=== PATIENT | female | born 1940 | race Hispanic/Latino ===

== ENCOUNTER 2019-02-11 23:34 | Inpatient (IN) | payer MEDICARE, OTHER ==
[~2019-02-11] VITALS: Ht 149.9 cm; Wt 41.8 kg
[~2019-02-11 23:34] MED LIST: AMLO5TAB9 PO; ASPI-555 PO; DONE10TA43 PO; GLIP2.5T2 PO; LEVO500S PO; LEVO500T89 PO; LISI40TA4 PO; METF-444 PO; METR500T PO; MULT-1258 PO; NAPR220C15 PO; PRAV40TA3 PO
[2019-02-12 00:06] LABS: CARBON DIOXIDE 24 mmol/L (21-32); CHLORIDE 104 mmol/L (101-111); CREATININE 3.3 mg/dL (0.5-1.5); GLOMERULAR FILTR. RATE CALC 14 mL/min (>60); GLUCOSE,RANDOM 164 mg/dL (70-105); POTASSIUM 3.8 mmol/L (3.5-5.1); SODIUM SERUM 141 mmol/L (136-145); UREA NITROGEN, BLOOD 62 mg/dL (7-18)
[2019-02-12] MEDS ORDERED: SODIUM CHLORIDE 0.9% 1000ML 1,000 ML IV ONE ×3 (00:06→05:10)
[2019-02-12 00:12] LABS: INR 1.06 (0.85-1.15); PARTIAL THROMBOPLASTIN TIME 22.8 SEC (26.3-35.5); PROTHROMBIN TIME 11.1 SEC (9.6-11.6)
[2019-02-12 00:13] LABS: APPEARANCE,URINE Turbid (CLEAR); BILIRUBIN,URINE Negative (NEGATIVE); COLOR,URINE Yellow (YELLOW); GLUCOSE, URINE (UA) Negative (NEGATIVE); KETONES,URINE Negative (NEGATIVE); LEUKOCYTE ESTERASE ,URINE Large (NEGATIVE); NITRATE,URINE Negative (NEGATIVE); OCCULT BLOOD,URINE Large (NEGATIVE); PROTEIN,URINE >=1000 mg/dL (NEGATIVE)
[2019-02-12 00:29] LABS: BACTERIA,URINE Many /HPF (None Seen); RBC,URINE 51-100 /HPF (0-1); WBC,URINE Full Field /HPF (0-1)
[2019-02-12 00:32] LABS: ALANINE AMINOTRANSFERASE 16 U/L (12-78); ASPARTATE AMINOTRANSFERASE 33 U/L (10-37); BILIRUBIN,TOTAL 0.6 mg/dL (0.2-1.0); MYOGLOBIN 5932 ng/mL (10-92); TROPONIN I < 0.04 ng/mL (0.00-0.06)
[2019-02-12 00:33] LABS: ALBUMIN 2.4 g/dL (3.5-5.0); TOTAL PROTEIN, SERUM 6.5 g/dL (6.0-8.3)
[2019-02-12 00:35] LABS: CREATINE KINASE, TOTAL 675 U/L (21-232)
[2019-02-12 00:53] LABS: BASOPHILS % (AUTO) 0.3 % (0.0-5.0); HEMATOCRIT 33.6 % (36-48); LYMPHOCYTES % (AUTO) 3.5 % (21.0-51.0); MEAN CORPUSCULAR HEMOGLOBIN 30.2 pg (27.0-33.0); MEAN CORPUSCULAR HGB CONC 32.5 g/dL (32.0-36.0); MEAN CORPUSCULAR VOLUME 92.9 fL (79-99); MONOCYTES % (AUTO) 3.1 % (3.0-13.0); NEUTROPHILS % (AUTO) 93.1 % (40.0-77.0); PLATELET COUNT (AUTO) 219 K/uL (130-400); RED BLOOD CELL COUNT(AUTO) 3.61 MIL/uL (4.00-5.50); RED CELL DISTRIBUTION WIDTH 15.1 % (11.0-15.5); WHITE BLOOD COUNT (AUTO) 18.2 K/uL (4.8-10.8)
[2019-02-12] MEDS ORDERED: CEFTRIAXONE SODIUM 1 GM ONE (00:53)
[2019-02-12] MEDS ORDERED: LIDOCAINE HCL 2% JELLY 5 ML ONE (04:02)
[2019-02-12] MEDS ORDERED: LEVOFLOXACIN 500 MG/D5W 100 ML 100 ML IV SCH (04:45)
[2019-02-12] MEDS ORDERED: LEVOFLOXACIN 500 MG/D5W 100 ML 100 ML ONE (05:10)
[2019-02-12] MEDS: SODIUM CHLORIDE 0.9% 1000ML 1,000 ML IV SCH (06:36)
[2019-02-12 07:30] VITALS: BP 87/59
[2019-02-12] MEDS: FAMOTIDINE/PF 20 MG/2 ML VIAL IV SCH (09:10)
[2019-02-12] MEDS ORDERED: COMPOUND IV MISC 1 EACH IVSOLN MISC PRN (09:30)
[2019-02-12] MEDS: METRONIDAZOLE 250MG/50ML 50 ML IV SCH ×2 (11:03→20:25)
[2019-02-12 12:00] VITALS: BP 120/64
[2019-02-12] MEDS: ENOXAPARIN SODIUM 30 MG/0.3 ML SQ SCH (13:50)
[2019-02-12 16:00] VITALS: BP 140/64
--- NOTE | 2019-02-12 17:01 | NUR ---
INITIAL: Met w pt and son Larry this afternoon to discuss dcp. Pt is nonverbal @ this time. Per pt's son, pt was active w [facility] prior to admission. He mentions that pt is bedbound and dependent w care. He mentions that he plans to take pt back home and resume [facility] @ [place]. BLANK/PC consent signed for [facility]. Informed Larry that Md would have to write orders to re-refer to Hospice [place]. CM to continue to follow and wait for Md recommendations. Addendum: 02/13/19 at 1704 by KEZIA BEE Amended: Links added.
[2019-02-12 19:00] VITALS: BP 114/64
[2019-02-13] VITALS: BP 109/63
[2019-02-13] MEDS: SODIUM CHLORIDE 0.9% 1000ML 1,000 ML IV SCH ×5 (00:40→20:33)
--- NOTE | 2019-02-13 01:20 | NUR ---
NG Tube While in patients room, she removed her NG tube, called and spoke with white metal corrosion proofer hospitalist Sadie NOLAN and informed her that patient is not allowing us to re-insert NG tube. Orders received to keep patient NPO, leave NG tube out, and to do abdominal ultrasound in am.
[2019-02-13 04:00] VITALS: BP 104/64
[2019-02-13 05:27] LABS: HEMATOCRIT 37.1 % (36-48); MEAN CORPUSCULAR HEMOGLOBIN 30.2 pg (27.0-33.0); MEAN CORPUSCULAR HGB CONC 32.4 g/dL (32.0-36.0); MEAN CORPUSCULAR VOLUME 93.1 fL (79-99); PLATELET COUNT (AUTO) 170 K/uL (130-400); RED BLOOD CELL COUNT(AUTO) 3.99 MIL/uL (4.00-5.50); RED CELL DISTRIBUTION WIDTH 15.3 % (11.0-15.5); WHITE BLOOD COUNT (AUTO) 9.3 K/uL (4.8-10.8)
[2019-02-13 05:38] LABS: CREATININE 1.7 mg/dL (0.5-1.5)
[2019-02-13 05:50] LABS: POTASSIUM 2.8 mmol/L (3.5-5.1)
--- NOTE | 2019-02-13 05:53 | NUR ---
critical lab Paged carpentry professional hospitalist to inform them of potassium of 2.8. Pending callback.
[2019-02-13] MEDS ORDERED: POTASSIUM CHLORIDE 10MEQ/100ML 10 MEQ/100 ML ML IV SCH (06:00)
[2019-02-13] MEDS: METRONIDAZOLE 250MG/50ML 50 ML IV SCH ×3 (06:14→20:16)
[2019-02-13] MEDS ORDERED: DEXTROSE 50%-WATER 50 ML DISP.SYRIN IV ONE (06:15)
[2019-02-13 07:00] VITALS: BP 139/83
[2019-02-13] MEDS: FAMOTIDINE/PF 20 MG/2 ML VIAL IV SCH (10:43)
[2019-02-13] MEDS: ENOXAPARIN SODIUM 30 MG/0.3 ML SQ SCH ×2 (10:45→13:00)
[2019-02-13 11:00] VITALS: BP_SYST 139; BP_SYST 141; BP_DIAS 79; BP_DIAS 83
[2019-02-13] MEDS: INSULIN HUMULIN R 100 UNIT/ML 3ML SQ SCH ×2 (11:30→21:00)
[2019-02-13] MEDS ORDERED: DEXTROSE 50%-WATER 50 ML DISP.SYRIN IV PRN (11:30)
[2019-02-13] MEDS ORDERED: GLUCAGON 1MG KIT 1 MG ML IM PRN (11:30)
[2019-02-13 12:17] LABS: BASOPHILS % (AUTO) 0.1 % (0.0-5.0); EOSINOPHILS % (AUTO) 0.1 % (0.0-8.0); HEMATOCRIT 32.3 % (36-48); LYMPHOCYTES % (AUTO) 4.1 % (21.0-51.0); MEAN CORPUSCULAR HEMOGLOBIN 30.5 pg (27.0-33.0); MEAN CORPUSCULAR HGB CONC 33.3 g/dL (32.0-36.0); MEAN CORPUSCULAR VOLUME 91.5 fL (79-99); MONOCYTES % (AUTO) 2.7 % (3.0-13.0); NUCLEATED RED BLOOD CELLS 0.1 % (0.0-0.19); PLATELET COUNT (AUTO) 178 K/uL (130-400); RED BLOOD CELL COUNT(AUTO) 3.53 MIL/uL (4.00-5.50); RED CELL DISTRIBUTION WIDTH 14.9 % (11.0-15.5); WHITE BLOOD COUNT (AUTO) 10.7 K/uL (4.8-10.8)
[2019-02-13 12:35] LABS: CREATININE 1.3 mg/dL (0.5-1.5)
[2019-02-13 12:42] LABS: POTASSIUM 2.8 mmol/L (3.5-5.1)
[2019-02-13] MEDS ORDERED: POTASSIUM CHLORIDE 20MEQ/100ML 100 ML IV PRN (15:30)
[2019-02-13] MEDS: LIDOCAINE HCL-MPF 1% 2ML VIAL IJ PRN ×2 (15:37→20:17)
[2019-02-13] MEDS: POTASSIUM CHLORIDE 20MEQ/100ML 100 ML IV SCH ×3 (15:37→20:33)
[2019-02-13 16:00] VITALS: BP 154/92
[2019-02-13] MEDS ORDERED: POTASSIUM CHLORIDE 20 MEQ/100 ML BAG IV SCH (16:00)
[2019-02-13 19:00] VITALS: BP 150/87
[2019-02-14] VITALS (7 sets, daily range): BP systolic 131–153; BP diastolic 66–97
[2019-02-14] MEDS: SODIUM CHLORIDE 0.9% 1000ML 1,000 ML IV SCH ×2 (03:21→17:45)
[2019-02-14] MEDS: METRONIDAZOLE 250MG/50ML 50 ML IV SCH ×2 (06:04→14:45)
[2019-02-14] MEDS: INSULIN HUMULIN R 100 UNIT/ML 3ML SQ SCH ×4 (06:43→20:34)
--- NOTE | 2019-02-14 06:44 | NUR ---
STATUS Pt slept fairly well.No distress noted.
[2019-02-14] MEDS ORDERED: LIDOCAINE HCL-MPF 1% 2ML VIAL IVP PRN ×2 (08:00)
[2019-02-14] MEDS ORDERED: POTASSIUM CHLORIDE 20MEQ/100ML 100 ML IV PRN (08:00)
[2019-02-14] MEDS: LEVOFLOXACIN 250 MG/D5W 50ML 50 ML IVPB SCH (09:20)
[2019-02-14] MEDS: LIDOCAINE HCL-MPF 1% 2ML VIAL IJ PRN ×3 (09:22→20:25)
[2019-02-14] MEDS: POTASSIUM CHLORIDE 10MEQ/100ML 100 ML IV PRN ×4 (09:22→23:09)
[2019-02-14] MEDS: FAMOTIDINE/PF 20 MG/2 ML VIAL IV SCH (09:27)
[2019-02-14] MEDS: ENOXAPARIN SODIUM 30 MG/0.3 ML SQ SCH (09:27)
--- NOTE | 2019-02-14 09:40 | NUR ---
DCP- [facility] Sw spoke to Rakan at [facility]. Pt's son revoked hospice, stated he wanted to seek aggressive treatment for pt. Hospice offered to visit and prevent admission and son refused. Per Rakan [facility] will take pt back if they chose to return to hospice.
--- NOTE | 2019-02-14 13:23 | NUR ---
DYSPHAGIA EVAL COMPLETED. +S/S OF ASPIRATION WITH MECHANICAL SOFT. RECOMMEND PUREED, THIN LIQUIDS; PILLS WHOLE WITH LIQUIDS. Addendum: 02/14/19 at 1324 by ROLANDO MELARA, [facility] Amended: Links added.
--- NOTE | 2019-02-14 15:48 | NUR ---
[facility] CONSULT PATIENT ASSESSED ORDERED: PATIENT PRESENTS WITH STAGE I PRESSURE ULCER TO LT HIP; [facility] RECOMMENDATIONS SUBMITTED. Addendum: 02/14/19 at 1550 by WALE CHEUNG LVN LVN W Amended: Links added.
--- NOTE | 2019-02-14 16:00 | NUR ---
SON WANTS SNF FOR TX OF BACTEREMIA CONSENT OBTAINED , REFERRAL SENT , WHO MET W [facility]E PATIENT TECHNICALLY ACCEPTED AT [facility]- EXCEPT THAT HOSPICE SHOWS UP STILL ACTIVE IN THE SYSTEM. WILL NEEDS TO BE AMENDED WILL FOLLOW UP Addendum: 02/15/19 at 1132 by OTONIEL BRUNO RN Amended: Links added.
--- NOTE | 2019-02-14 16:32 | NUR ---
DCP Sw met with pt's son at bedside. Son states that pt will be going to [facility] for antibiotics and then home with hospice. SW to follow and assist if dcp changes
[2019-02-14] MEDS: POTASSIUM CHLORIDE 10% ELIXIR 20 MEQ/15 ML UDCUP PO PRN ×2 (20:24→21:43)
--- NOTE | 2019-02-14 20:47 | NUR ---
K+ Magnesium Paged Sadie Caballero [employer] Rental Agent to notify re K+ and Mg+ level.
[2019-02-14] MEDS: MAGNESIUM 2GM PREMIX 50ML 50 ML IV PRN ×2 (21:42→23:08)
[2019-02-15] MEDS: POTASSIUM CHLORIDE 10% ELIXIR 20 MEQ/15 ML UDCUP PO PRN (00:31)
[2019-02-15] MEDS: SODIUM CHLORIDE 0.9% 1000ML 1,000 ML IV SCH ×3 (02:56→20:55)
[2019-02-15 03:20] VITALS: BP 163/99
[2019-02-15] MEDS: INSULIN HUMULIN R 100 UNIT/ML 3ML SQ SCH ×4 (05:24→20:55)
--- NOTE | 2019-02-15 05:30 | NUR ---
CARE Pt repositoned q 2 hrs per staff,incontinent and grimaldo cath care rendered per staff.Pt grabs on to staff when being changed.Reoriented prn.
[2019-02-15 07:01] LABS: CREATININE 0.6 mg/dL (0.5-1.5); POTASSIUM 3.3 mmol/L (3.5-5.1)
[2019-02-15 07:27] LABS: BASOPHILS % (AUTO) 0.1 % (0.0-5.0); EOSINOPHILS % (AUTO) 0.7 % (0.0-8.0); HEMATOCRIT 29.6 % (36-48); LYMPHOCYTES % (AUTO) 10.9 % (21.0-51.0); MEAN CORPUSCULAR HEMOGLOBIN 30.1 pg (27.0-33.0); MEAN CORPUSCULAR HGB CONC 33.5 g/dL (32.0-36.0); MEAN CORPUSCULAR VOLUME 89.8 fL (79-99); MONOCYTES % (AUTO) 9.4 % (3.0-13.0); NEUTROPHILS % (AUTO) 78.9 % (40.0-77.0); PLATELET COUNT (AUTO) 169 K/uL (130-400); RED BLOOD CELL COUNT(AUTO) 3.29 MIL/uL (4.00-5.50); RED CELL DISTRIBUTION WIDTH 15.2 % (11.0-15.5); WHITE BLOOD COUNT (AUTO) 6.2 K/uL (4.8-10.8)
[2019-02-15 08:00] VITALS: BP 122/67
[2019-02-15] MEDS: FAMOTIDINE/PF 20 MG/2 ML VIAL IV SCH (09:03)
[2019-02-15] MEDS: ENOXAPARIN SODIUM 30 MG/0.3 ML SQ SCH (09:03)
--- NOTE | 2019-02-15 11:55 | NUR ---
CALL TO SHARLENE NIX HERE; ASKING ABOUT THE ABX; CALL TO DR. Bonner; STATED YES WILL BE USING IV ABX, WILL DECIDE TOMORROW ON DISPOSITION Addendum: 02/15/19 at 1649 by OTONIEL BRUNO RN CM Amended: Links added.
[2019-02-15 11:57] VITALS: BP 114/58
[2019-02-15] MEDS: POTASSIUM CHLORIDE 20 MEQ ERTAB PO PRN ×3 (15:11→19:15)
[2019-02-15 16:00] VITALS: BP 142/73
--- NOTE | 2019-02-15 18:23 | NUR ---
Nutrition Intervention: Nutrition screen based on BMI 18.6. Pt. admitted with Dx of AMS related to lorazepam ingestion. 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 Pureed texture with thin liquids. Pt. on Heart Healthy Pureed diet with good p.o. intake, per nursing instructor. Labs reviewed(Alb 2.4, BG 155). LBM: 02/13/19. SR-14, elastic. BMI: 18.6, underweight for age. Recommendations: 1) Rec. 60gm CCD Heart Healthy Pureed diet. 2) Rec. Glucerna supp. QD with B'fast meal. 3) Continue to monitor pt's nutritional status. 4) Consult RD as nutrition concerns arise. Addendum: 02/15/19 at [address] Amended: Links added.
[2019-02-15 20:00] VITALS: BP 143/82
[2019-02-15 23:20] VITALS: BP 152/94
--- NOTE | 2019-02-16 01:00 | NUR ---
REST Pt resting quietly in bed,respirations even and unlabored.Repositioned per staff,grimaldo cath care and yonathan care rendered.Hob up 30 degrees.
[2019-02-16 03:20] VITALS: BP 119/77
[2019-02-16] MEDS: INSULIN HUMULIN R 100 UNIT/ML 3ML SQ SCH ×4 (05:50→20:44)
[2019-02-16 07:00] VITALS: BP 129/67
[2019-02-16] MEDS: FAMOTIDINE/PF 20 MG/2 ML VIAL IV SCH (08:43)
[2019-02-16] MEDS: SODIUM CHLORIDE 0.9% 1000ML 1,000 ML IV SCH (08:43)
[2019-02-16] MEDS: LEVOFLOXACIN 250 MG/D5W 50ML 50 ML IVPB SCH (08:43)
[2019-02-16] MEDS: ENOXAPARIN SODIUM 30 MG/0.3 ML SQ SCH (08:47)
[2019-02-16 11:00] VITALS: BP 134/75
[2019-02-16 16:00] VITALS: BP 106/60
[2019-02-16 17:15] LABS: INR 1.06 (0.85-1.15); PROTHROMBIN TIME 11.1 SEC (9.6-11.6)
[2019-02-16 20:00] VITALS: BP 116/75
--- NOTE | 2019-02-16 21:05 | NUR ---
PM NOTE Easy to arouse, nonverbal. Does not appear in any distress. Repositioned for comfort. Side rails up. Call gallo within reach.
[2019-02-17] VITALS: BP 134/79
[2019-02-17 04:13] VITALS: BP 142/86
[2019-02-17] MEDS: INSULIN HUMULIN R 100 UNIT/ML 3ML SQ SCH ×3 (06:28→16:16)
[2019-02-17 07:00] VITALS: BP 131/76
[2019-02-17] MEDS ORDERED: CEFTRIAXONE SODIUM 1 GM IVP SCH (09:00)
[2019-02-17] MEDS: ENOXAPARIN SODIUM 30 MG/0.3 ML SQ SCH (09:00)
[2019-02-17 11:00] VITALS: BP 131/78
--- NOTE | 2019-02-17 11:00 | NUR ---
picc line picc line inserted using sterile technique to right upper arm 5 moroccan 2 lumen, pt tolerated well. pending chest xray report from md to use line, report given to Rj Pinon RN. picc line secured with opsite dressing dressing , site asymptomatic. both ports flushed without difficulty, and good blood return on both ports.
--- NOTE | 2019-02-17 11:00 | NUR ---
picc line picc line was trim at 36 cm, after chest xray picc line pulled to 2 cm left at 34 cm internal. external 2 cm.
[2019-02-17] MEDS: FAMOTIDINE/PF 20 MG/2 ML VIAL IV SCH (11:37)
[2019-02-17 16:00] VITALS: BP 131/79
--- NOTE | 2019-02-17 17:35 | NUR ---
PATIENT DISCHARGED PATIENT DISCHARGED, TO BE TRANSFERRED TO [facility], REPORT CALLED TO CHAPINCITO SCOTT AT APPROX 1725 HOURS. IV DISCONTINUED, CATHLON INTACT, BLEEDING CONTROLLED, PATIENT TOLERATED WITHOUT INCIDENT. EMS CALLED FOR TRANSPORTATION. DISCUSSED DISCHARGE WITH MARLO ANDRADE.
== END 2019-02-17 19:30 | DRG 871 ==
LOC: EDH 23:34 → EDHIP 02-12 04:40 → 3CH 02-12 05:36
PROVIDERS: ADMIT Internal Medicine; ATTEND Internal Medicine
PROC: 02HV33Z Insertion of Infusion Device into Superior Vena Cava, Percutaneous Approach (ICD-10-PCS; principal; 2019-02-17)
DX: A41.51 Sepsis due to Escherichia coli [E. coli] (principal); N17.0 Acute kidney failure with tubular necrosis; E43 Unspecified severe protein-calorie malnutrition; G93.41 Metabolic encephalopathy; R53.2 Functional quadriplegia; N13.6 Pyonephrosis; N18.5 Chronic kidney disease, stage 5; Z68.1 Body mass index [BMI] 19.9 or less, adult; M48.56XA Collapsed vertebra, not elsewhere classified, lumbar region, initial encounter for fracture; R47.01 Aphasia; R64 Cachexia; E87.6 Hypokalemia; R65.20 Severe sepsis without septic shock; Z74.01 Bed confinement status; N32.0 Bladder-neck obstruction; L89.152 Pressure ulcer of sacral region, stage 2; K56.41 Fecal impaction; E11.22 Type 2 diabetes mellitus with diabetic chronic kidney disease; F03.90 Unspecified dementia, unspecified severity, without behavioral disturbance, psychotic disturbance, mood disturbance, and anxiety; Z51.5 Encounter for palliative care; Z86.73 Personal history of transient ischemic attack (TIA), and cerebral infarction without residual deficits; Z83.3 Family history of diabetes mellitus; Z82.49 Family history of ischemic heart disease and other diseases of the circulatory system; Z82.0 Family history of epilepsy and other diseases of the nervous system
CPT/HCPCS: 36415; 70450; 71045; 74018; 74176; 80048; 80053; 81001; 82550; 82948; 83605; 83735; 83874; 84132; 84484; 85025; 85027; 85610; 85730; 87040; 87077; 87088; 87186; 92610; 93005; 97039; C1894; G0378; J0696; J1650; J1956; J3475; J3480; J3490; J7030; J7070